=== PATIENT | male | born 1950 | race Caucasian/White ===

== ENCOUNTER 2018-09-20 10:36 | Inpatient (IN) | payer MEDICARE ==
[~2018-09-20] VITALS: Ht 177.8 cm; Wt 89.2 kg
--- NOTE | 2018-09-20 10:38 | NUR ---
68 MALE BIB AMBULANCE FROM [facility]. PT VISTING FROM [place]. PT STATES "I GOT REALLY SHORT OF BREATH ABOUT 0100. I HAD A SINUS INFECTION. I JUST CAN'T BREATHE." NO C/O N/V/D, SYNCOPE, CP, TRAUMA. SIGNIFICANT OTHER BEDSIDE. PER EMS, PIV ESTABLISHED. DUO NEB AND ALBUTEROL TREATMENTS GIVEN CASING MAN. PT PLACED ON CONT PULSE OX,NIBP, [employer].
[2018-09-20 11:27] LABS: BASOPHILS # (AUTO) 0.01 x10^3/uL (0-0.1); BASOPHILS % (AUTO) 0 % (0-1); EOSINOPHILS % (AUTO) 0 % (1-7); LYMPHOCYTES # (AUTO) 0.72 x10^3/uL (1-3.4); LYMPHOCYTES % (AUTO) 5 % (22-44); MD NO; MEAN CORPUSCULAR HEMOGLOBIN 30.3 pg (27.5-34.5); MEAN CORPUSCULAR HGB CONC 32.7 g/dL (33.2-36.2); MEAN CORPUSCULAR VOLUME 92.9 fL (81-97); MEAN PLATELET VOLUME 7.7 fL (7.4-10.4); MONOCYTES % (AUTO) 8 % (2-9); NEUTROPHILS # (AUTO) 12.93 x10^3/uL (1.8-6.8); NEUTROPHILS % (AUTO) 87 % (42-75); PLATELET COUNT 233 x10^3/uL (130-400); RED BLOOD COUNT 4.67 x10^6/uL (4.38-5.82); RED CELL DISTRIBUTION WIDTH 15.1 % (9.4-14.8)
[2018-09-20] MEDS ORDERED: PLEASE ENTER ALLERGIES MC SCH (11:30)
[2018-09-20] MEDS ORDERED: SODIUM CHLORIDE FLUSH 10ML SYR IVF ONE (11:30)
[2018-09-20 11:39] LABS: ALBUMIN 3.8 g/dL (3.4-5.0); ANION GAP 9 mmol/L (5-15); CALCIUM 9.2 mg/dL (8.5-10.1); CHLORIDE 102 mmol/L (98-107)
[2018-09-20 11:41] LABS: INTERNATIONAL NORMALIZED RATIO 1.05 (0.93-1.1); PROTHROMBIN TIME 11.1 Seconds (9.6-11.5)
[2018-09-20 11:45] LABS: ALANINE AMINOTRANSFERASE 38 U/L (12-78); ALKALINE PHOSPHATASE 90 U/L (45-117); BILIRUBIN,TOTAL 0.7 mg/dL (0.2-1.0); CREATININE 0.97 mg/dL (0.7-1.3); TOTAL PROTEIN 7.6 g/dL (6.4-8.2); TROPONIN I 0.055 ng/mL (0.000-0.045)
[2018-09-20] MEDS ORDERED: FUROSEMIDE 40 MG/4 ML IV ONE (12:00)
[2018-09-20] MEDS ORDERED: APIXABAN 5 MG TABLET PO ONE (12:00)
[2018-09-20] MEDS ORDERED: crestor (12:08)
[2018-09-20] MEDS ORDERED: AMLO-150 PO (12:08)
[2018-09-20] MEDS ORDERED: ASPI-515 PO (12:09)
[2018-09-20] MEDS ORDERED: FUROSEMIDE 40 MG/4 ML ONE (12:18)
[2018-09-20] MEDS ORDERED: APIXABAN 5 MG TABLET ONE (12:18)
--- NOTE | 2018-09-20 12:28 | NUR ---
LATE ENTRY FOR 1130 PT STATES "I WAS ON LASIX, BUT IT MADE ME PEE TOO MUCH. SO I QUIT TAKING IT A WEEK AGO." NO ACUTE DISTRESS NOTED. NO NEEDS REQUESTED AT THIS TIME.
--- NOTE | 2018-09-20 12:29 | NUR ---
PT VERBALIZES UNDERSTANDING REGARDING POC. NO ACUTE DISTRESS NOTED. NO NEEDS REQUESTED AT THIS TIME. SIGNIFICANT OTHER BEDSIDE.
--- NOTE | 2018-09-20 12:29 | NUR ---
REPORT Called TO SARKIS DURÁN. ALL QUESTIONS ANSWERED.
--- NOTE | 2018-09-20 12:48 | NUR ---
PT REFUSING ELIQUIS. DIET TTRAY DELIVERED
[2018-09-20] MEDS ORDERED: GABAPENTIN 300 MG CAPSULE PO PRN (13:00)
[2018-09-20] MEDS ORDERED: DOCUSATE 100 MG CAPSULE PO PRN (13:00)
[2018-09-20] MEDS ORDERED: POLYETHYLENE GLYCOL 17 GM PACKET PO PRN (13:00)
[2018-09-20] MEDS ORDERED: BISACODYL 10 MG SUPP PR PRN (13:00)
[2018-09-20] MEDS: HEPARIN 5,000 UNITS/ML, 1ML SQ SCH ×2 (13:00→20:09)
[2018-09-20] MEDS ORDERED: ACETAMINOPHEN 325 MG TABLET PO PRN (13:00)
[2018-09-20] MEDS ORDERED: BACLOFEN 10 MG TABLET PO PRN (13:00)
[2018-09-20] MEDS: NICOTINE 14MG/24 HR PATCH.TD24 TD SCH (13:00)
[2018-09-20] MEDS ORDERED: ENALAPRILAT 1.25 MG/ML, 2ML IVPush PRN (13:00)
[2018-09-20] MEDS ORDERED: AZITHROMYCIN 500 MG in SODIUM CHLORIDE 0.9% 250 ML IV SCH (13:00)
[2018-09-20] MEDS ORDERED: hydrALAzine 20 MG/ML, 1ML IVPush PRN (13:00)
--- NOTE | 2018-09-20 13:05 | NUR ---
PT TRANSPORTED TO FLOOR. PT LEFT WITH ALL PERSONAL BELONGINGS.
[2018-09-20 13:11] LABS: AMPHETAMINE SCREEN, URINE Negative (Negative); BARBITURATE SCREEN, URINE Negative (Negative); BENZODIAZEPINE SCREEN, URINE Negative (Negative); CANNABINOID SCREEN, URINE Negative (Negative); COCAINE SCREEN, URINE Negative (Negative); METHADONE SCREEN, URINE Negative (Negative); OPIATE SCREEN, URINE Negative (Negative)
[2018-09-20 13:22] VITALS: BP 160/92
[2018-09-20 13:28] LABS: TROPONIN I 0.083 ng/mL (0.000-0.045)
[2018-09-20] MEDS ORDERED: CEFTRIAXONE PMX 1GM/50ML 50 ML IV SCH (13:30)
[2018-09-20 13:34] LABS: THYROID STIMULATING HORMONE 0.558 mIU/L (0.358-3.740)
[2018-09-20 14:24] LABS: HEMOGLOBIN A1C 6.2 % (4.2-6.3)
[2018-09-20] MEDS ORDERED: ALBUTEROL SULFATE 2.5 MG/3 ML NPPB PRN (15:00)
[2018-09-20] MEDS ORDERED: MAGNESIUM SULFATE 3 GM in SODIUM CHLORIDE 0.9% 100 ML IV ONE (15:30)
[2018-09-20] MEDS: methylPREDNISolone SOD SUCC 40 MG/ML IV SCH ×2 (16:23→22:37)
[2018-09-20 18:40] VITALS: BP 147/90
[2018-09-20 20:02] LABS: TROPONIN I 0.123 ng/mL (0.000-0.045)
[2018-09-20] MEDS: FUROSEMIDE 40 MG/4 ML IV SCH (20:13)
[2018-09-20] MEDS ORDERED: ATORVASTATIN 40 MG TABLET PO SCH (21:00)
[2018-09-21 02:53] VITALS: BP 130/76
[2018-09-21 05:02] LABS: BASOPHILS # (AUTO) 0.05 x10^3/uL (0-0.1); BASOPHILS % (AUTO) 1 % (0-1); EOSINOPHILS % (AUTO) 0 % (1-7); LYMPHOCYTES # (AUTO) 0.45 x10^3/uL (1-3.4); LYMPHOCYTES % (AUTO) 5 % (22-44); MD NO; MEAN CORPUSCULAR HGB CONC 33.2 g/dL (33.2-36.2); MEAN CORPUSCULAR VOLUME 93.2 fL (81-97); MEAN PLATELET VOLUME 7.9 fL (7.4-10.4); MONOCYTES # (AUTO) 0.21 x10^3/uL (0.2-0.8); MONOCYTES % (AUTO) 2 % (2-9); NEUTROPHILS # (AUTO) 7.79 x10^3/uL (1.8-6.8); NEUTROPHILS % (AUTO) 92 % (42-75); PLATELET COUNT 194 x10^3/uL (130-400); RED BLOOD COUNT 3.98 x10^6/uL (4.38-5.82); RED CELL DISTRIBUTION WIDTH 15.8 % (9.4-14.8)
[2018-09-21] MEDS: methylPREDNISolone SOD SUCC 40 MG/ML IV SCH ×2 (05:06→10:22)
[2018-09-21] MEDS: HEPARIN 5,000 UNITS/ML, 1ML SQ SCH ×2 (05:06→13:00)
[2018-09-21 05:09] LABS: ALANINE AMINOTRANSFERASE 28 U/L (12-78); ALBUMIN 3.2 g/dL (3.4-5.0); ANION GAP 5 mmol/L (5-15); CALCIUM 9.1 mg/dL (8.5-10.1); CHLORIDE 100 mmol/L (98-107); CREATININE 1.01 mg/dL (0.7-1.3)
[2018-09-21 05:14] LABS: ALKALINE PHOSPHATASE 69 U/L (45-117); BILIRUBIN,TOTAL 0.6 mg/dL (0.2-1.0); CHOL/HDL RATIO 2.1; CHOLESTEROL, TOTAL 93 mg/dL (140-239); HDL CHOL % 48 % (26-37); HDL CHOLESTEROL (DIRECT) 45 mg/dL (40-60); LDL CHOLESTEROL,CALCULATED 40 mg/dL (54-169); LDL/HDL RATIO 0.9 (0.5-3.0); TOTAL PROTEIN 6.6 g/dL (6.4-8.2); TRIGLYCERIDES 42 mg/dL (50-200); VLDL CHOLESTEROL 8 mg/dL (0-25)
[2018-09-21] MEDS ORDERED: ASPIRIN 325 MG TABLET EC PO SCH (06:00)
[2018-09-21] MEDS ORDERED: THIAMINE 100MG TABLET PO SCH (09:00)
[2018-09-21 09:15] LABS: TROPONIN I 0.103 ng/mL (0.000-0.045)
[2018-09-21 09:24] VITALS: BP 111/67
[2018-09-21] MEDS: FUROSEMIDE 40 MG/4 ML IV SCH (10:22)
[2018-09-21] MEDS ORDERED: DOXYCYCLINE 100MG TABLET PO SCH (12:30)
[2018-09-21] MEDS: NICOTINE 14MG/24 HR PATCH.TD24 TD SCH (13:00)
[2018-09-21 14:19] VITALS: BP 117/68
== END 2018-09-21 15:10 | disposition left against medical advice (07) | DRG 291 ==
LOC: ED 11:46 → EDIP 11:47 → ED 11:55 → 5SO 13:07
PROVIDERS: ADMIT Hospitalist; ATTEND Hospitalist
DX: I11.0 Hypertensive heart disease with heart failure (principal); J18.9 Pneumonia, unspecified organism; J96.01 Acute respiratory failure with hypoxia; D68.59 Other primary thrombophilia; I48.92 Unspecified atrial flutter; J44.0 Chronic obstructive pulmonary disease with (acute) lower respiratory infection; K92.2 Gastrointestinal hemorrhage, unspecified; I50.33 Acute on chronic diastolic (congestive) heart failure; F17.210 Nicotine dependence, cigarettes, uncomplicated; I48.0 Paroxysmal atrial fibrillation; Z53.21 Procedure and treatment not carried out due to patient leaving prior to being seen by health care provider; Z96.649 Presence of unspecified artificial hip joint; I27.20 Pulmonary hypertension, unspecified; I08.3 Combined rheumatic disorders of mitral, aortic and tricuspid valves; Z95.2 Presence of prosthetic heart valve
CPT/HCPCS: 36415; 71045; 80053; 80061; 80307; 83036; 83735; 83880; 84100; 84145; 84443; 84484; 85025; 85610; 87040; 87070; 87205; 93005; 93306; 96374; G0378; J0456; J0696; J1940; J3475; J7613; J2920; J7050